=== PATIENT | male | born 1960 ===

== ENCOUNTER 2019-05-25 18:54 | Emergency (ER) | payer SELFPAY ==
--- NOTE | 2019-05-25 19:23 | NUR ---
PER REGISTRATION, PT CHOSE NOT TO BE SEEN AND REFUSED TO SIGN AN AMA FORM.
== END 2019-05-26 03:13 | disposition left against medical advice (07) ==
LOC: ED 05-26 02:00
DX: Z53.21 Procedure and treatment not carried out due to patient leaving prior to being seen by health care provider (principal)